=== PATIENT | male | born 1995 | race Caucasian/White ===

== ENCOUNTER 2016-10-27 11:48 | Emergency (ER) | payer BC, OTHER ==
--- NOTE | 2016-10-27 12:56 | UC ---
Knee Pain HPI - HPI Summary HPI Summary: Has had mild R knee pain for more than a year since he fell on it playing basketball -- did not have a twist or instability at that time. This week pain has increased markedly with trying to get more exercise -- went on 2 runs and played soccer yesterday. After runs knee was achy for a few hours, but after playing soccer last night pt had a hard time standing and walking at work. Pain in anterior top of knee and behind joint with walking. No prior surgery, no swelling, fever, or redness. - History of Current Complaint Chief Complaint: UCLowerExtremity Stated Complaint: KNEE PAIN Time Seen by Provider: 10/27/16 12:29 Hx Obtained From: Patient Onset/Duration: Gradual Onset Severity Initially: Mild Severity Currently: Moderate Character: Dull, Aching Aggravating Factor(s): Movement, Weight Bearing Alleviating Factor(s): Rest Associated Signs And Symptoms: Positive: Negative Able to Bear Weight: Yes - Allergies/Home Medications Allergies/Adverse Reactions: Allergies Allergy/AdvReac Type Severity Reaction Status Date / Time No Known Allergies Allergy Verified 02/18/15 07:51 PMH/Surg Hx/FS Hx/Imm Hx Previously Healthy: Yes - Surgical History Surgical History: Yes Surgery Procedure, Year, and Place: wisdom teeth - Family History Known Family History: Positive: Hypertension - Social History Occupation: Employed Full-time - [employer] Alcohol Use: Occasionally Substance Use Type: None Smoking Status (MU): Never Smoked Tobacco Review of Systems Constitutional: Negative Skin: Negative Eyes: Negative ENT: Negative Respiratory: Negative Cardiovascular: Negative Gastrointestinal: Negative Genitourinary: Negative Motor: Negative Neurovascular: Negative Musculoskeletal: Arthralgia - R knee Neurological: Negative Psychological: Negative All Other Systems Reviewed And Are Negative: Yes Physical Exam Triage Information Reviewed: Yes Appearance: Well-Appearing, No Pain Distress, Well-Nourished Vital Signs: Initial Vital Signs Temp 100.2 F 10/27/16 11:57 Pulse 64 10/27/16 11:57 Resp 16 10/27/16 11:57 Pulse Ox 100 10/27/16 11:57 Vital Signs Reviewed: Yes Eye Exam: Normal, Other - PERRL Eyes: Positive: Conjunctiva Clear ENT Exam: Normal ENT: Positive: Normal ENT inspection, Hearing grossly normal, Pharynx normal, TMs normal. Negative: Tonsillar swelling, Tonsillar exudate Dental Exam: Normal Neck exam: Normal Neck: Positive: Supple, Nontender, No Lymphadenopathy Respiratory Exam: Normal Respiratory: Positive: Chest non-tender, Lungs clear, Normal breath sounds, No respiratory distress, No accessory muscle use Cardiovascular Exam: Normal Cardiovascular: Positive: RRR, No Murmur Musculoskeletal Exam: Other - no R knee joint laxity Musculoskeletal: Positive: Strength Intact, ROM Intact Neurological Exam: Normal Neurological: Positive: Alert Psychological Exam: Normal Skin Exam: Normal Knee Pain Course/Dx - Differential Dx/Diagnosis Provider Diagnoses: R knee pain. elevated blood pressure due to pain Discharge - Discharge Plan Condition: Stable Disposition: HOME Patient Education Materials: Knee Pain (ED) Referrals: Rimma Ware MD [Medical Doctor] - 1 Week Additional Instructions: Avoid vigorous activity; normal walking and working should be fine. Use ice. elevation, and the prescription naproxen when you have pain.
[2016-10-27 13:14] VITALS: BP 146/85
--- NOTE | 2016-10-27 13:38 | RAD ---
HISTORY: Right knee pain COMPARISONS: None VIEWS: 4, Frontal, lateral, axial, and oblique views of the right knee FINDINGS: BONE DENSITY: Normal. BONES: There is no displaced fracture. JOINTS: There is mild medial compartment and patellofemoral compartment joint space narrowing with minimal spurring of the tibial spines ALIGNMENT: There is no dislocation. SOFT TISSUES: Unremarkable. OTHER FINDINGS: None. IMPRESSION: MILD OSTEOARTHRITIS. NO ACUTE OSSEOUS INJURY. IF SYMPTOMS PERSIST, RECOMMEND REPEAT IMAGING.
== END 2016-10-27 13:42 | disposition home or self-care (01) ==
LOC: UCEAST 11:48
DX: M25.561 Pain in right knee (principal); W18.39XS Other fall on same level, sequela; X50.0XXA Overexertion from strenuous movement or load, initial encounter; X50.3XXA Overexertion from repetitive movements, initial encounter; Y93.02 Activity, running; Y93.66 Activity, soccer; Y92.9 Unspecified place or not applicable; Y99.8 Other external cause status
CPT/HCPCS: 99212; G0463

== ENCOUNTER → 2018-09-28 18:03 | Emergency (ER) | payer OTHER ==
[2018-09-28 18:06] VITALS: BP 165/94
== END | disposition left against medical advice (07) ==
LOC: ED 18:03
DX: Z53.21 Procedure and treatment not carried out due to patient leaving prior to being seen by health care provider (principal)
CPT/HCPCS: 99281

== ENCOUNTER 2018-09-28 19:32 | Emergency (ER) | payer OTHER ==
[2018-09-28 19:42] VITALS: BP 133/79
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
== END 2018-09-28 20:20 | disposition home or self-care (01) ==
LOC: UCEAST 19:32
DX: T22.012A Burn of unspecified degree of left forearm, initial encounter (principal); T31.0 Burns involving less than 10% of body surface; V48.3XXA Unspecified car occupant injured in noncollision transport accident in nontraffic accident, initial encounter; Y92.9 Unspecified place or not applicable
CPT/HCPCS: 99212; G0463